=== PATIENT | female | born 1955 | race Asian ===

== ENCOUNTER 2019-06-26 23:00 | Emergency (ER) | payer MEDICARE, MEDICAID ==
[~2019-06-26] VITALS: Ht 152.4 cm; Wt 57.0 kg
[~2019-06-26 23:00] MED LIST: ATENOLOL; FERR-86 PO; METF-436 PO
[2019-06-26] MEDS ORDERED: morphine 4 MG/ML inj SYRINge IM ONE (23:35)
[2019-06-26] MEDS ORDERED: HYDROcodone/acetaminophen 10/325mg tab PO ONE (23:35)
[2019-06-26] MEDS ORDERED: ondansetron 4mg rapidly disintigrating tab PO ONE (23:50)
[2019-06-27] MEDS ORDERED: HYDR-4383 PO (01:15)
[2019-06-27 01:29] VITALS: BP 117/62
== END 2019-06-27 01:29 | disposition home or self-care (01) ==
LOC: ER 23:00
DX: S39.012A Strain of muscle, fascia and tendon of lower back, initial encounter (principal); R42 Dizziness and giddiness; I10 Essential (primary) hypertension; E11.9 Type 2 diabetes mellitus without complications; Z79.899 Other long term (current) drug therapy; W18.39XA Other fall on same level, initial encounter; Y93.89 Activity, other specified; Y92.89 Other specified places as the place of occurrence of the external cause; Y99.8 Other external cause status
CPT/HCPCS: 72100; 82948; 96372; 99284; J2270

== ENCOUNTER 2020-03-17 19:26 | Emergency (ER) | payer MEDICARE, MEDICAID ==
[~2020-03-17] VITALS: Ht 149.9 cm; Wt 44.1 kg
[~2020-03-17 19:26] MED LIST changes: +HYDR-4383 PO
[2020-03-17 20:00] LABS: BASOPHILS # (AUTO) 0.1 X10'3 (0-0.2); BASOPHILS % (AUTO) 0.6 % (0-1); EOSINOPHILS # (AUTO) 0.2 X10'3 (0-0.9); EOSINOPHILS % (AUTO) 1.8 % (0-6); HEMATOCRIT 34.3 % (35.0-45.0); HEMOGLOBIN 10.7 g/dl (12.0-16.0); LYMPHOCYTES # (AUTO) 3.1 X10'3 (1.1-4.8); LYMPHOCYTES % (AUTO) 28.5 % (21-51); MEAN CORPUSCULAR HEMOGLOBIN 20.7 PG (27.0-31.0); MEAN CORPUSCULAR HGB CONC 31.1 g/dL (33.0-36.5); MEAN CORPUSCULAR VOLUME 66.6 FL (78-98); MEAN PLATELET VOLUME 7.9 FL (7.4-10.4); MONOCYTES # (AUTO) 0.5 X10'3 (0-0.9); MONOCYTES % (AUTO) 4.6 % (2-12); NEUTROPHILS # (AUTO) 6.9 X10'3 (1.8-7.7); NEUTROPHILS % (AUTO) 64.5 % (42-75); PLATELET COUNT 255 X10'3 (140-440); RED BLOOD COUNT 5.16 X10'6 (4.20-5.60); RED CELL DISTRIBUTION WIDTH 14.9 % (11.5-14.5); WHITE BLOOD COUNT 10.8 X10'3 (4.5-11.0)
[2020-03-17 20:14] LABS: ALANINE AMINOTRANSFERASE 16 U/L (12-78); ALBUMIN 4.2 G/DL (3.4-5.0); ALBUMIN/GLOBULIN RATIO 1.2 (1.1-1.5); ALKALINE PHOSPHATASE 61 IU/L (46-116); ANION GAP 9 (8-16); ASPARTATE AMINO TRANSFERASE 14 U/L (10-37); BILIRUBIN,TOTAL 0.3 MG/DL (0.1-1.0); BLOOD UREA NITROGEN 9 MG/DL (7-18); BUN/CREATININE RATIO 8.2 (6.6-38.0); CALCIUM 9.2 MG/DL (8.5-10.1); CHLORIDE 97 MMOL/L (99-107); GLUCOSE 134 MG/DL (70-104); POTASSIUM 3.7 MMOL/L (3.5-5.1); SODIUM 135 MMOL/L (135-145); TOTAL CARBON DIOXIDE 28.7 MMOL/L (24-32); TOTAL PROTEIN 7.6 G/DL (6.4-8.2); eGFR 50 ML/MIN
[2020-03-17 23:16] VITALS: BP 162/74
== END 2020-03-17 23:17 | disposition home or self-care (01) ==
LOC: ER 19:26
DX: R00.2 Palpitations (principal); I10 Essential (primary) hypertension; E11.9 Type 2 diabetes mellitus without complications; Z79.899 Other long term (current) drug therapy
CPT/HCPCS: 36415; 71045; 80053; 83880; 84484; 85025; 93005; 99285

== ENCOUNTER 2020-03-20 17:51 | Inpatient (IN) | payer MEDICARE, MEDICAID ==
[~2020-03-20] VITALS: Ht 144.8 cm; Wt 45.6 kg
[2020-03-20 18:41] LABS: BASOPHILS % (AUTO) 0.5 % (0-1); EOSINOPHILS # (AUTO) 0.1 X10'3 (0-0.9); EOSINOPHILS % (AUTO) 0.9 % (0-6); HEMATOCRIT 33.7 % (35.0-45.0); HEMOGLOBIN 10.6 g/dl (12.0-16.0); LYMPHOCYTES # (AUTO) 2.1 X10'3 (1.1-4.8); LYMPHOCYTES % (AUTO) 20.8 % (21-51); MEAN CORPUSCULAR HEMOGLOBIN 20.6 PG (27.0-31.0); MEAN CORPUSCULAR HGB CONC 31.5 g/dL (33.0-36.5); MEAN CORPUSCULAR VOLUME 65.5 FL (78-98); MEAN PLATELET VOLUME 7.6 FL (7.4-10.4); MONOCYTES # (AUTO) 0.5 X10'3 (0-0.9); MONOCYTES % (AUTO) 4.6 % (2-12); NEUTROPHILS # (AUTO) 7.3 X10'3 (1.8-7.7); NEUTROPHILS % (AUTO) 73.2 % (42-75); PLATELET COUNT 256 X10'3 (140-440); RED BLOOD COUNT 5.14 X10'6 (4.20-5.60)
[2020-03-20 18:53] LABS: ALANINE AMINOTRANSFERASE 17 U/L (12-78); ALBUMIN 4.3 G/DL (3.4-5.0); ALBUMIN/GLOBULIN RATIO 1.3 (1.1-1.5); ALKALINE PHOSPHATASE 57 IU/L (46-116); ANION GAP 9 (8-16); ASPARTATE AMINO TRANSFERASE 14 U/L (10-37); BILIRUBIN,TOTAL 0.3 MG/DL (0.1-1.0); BLOOD UREA NITROGEN 8 MG/DL (7-18); BUN/CREATININE RATIO 8.6 (6.6-38.0); CALCIUM 9.4 MG/DL (8.5-10.1); CHLORIDE 86 MMOL/L (99-107); CREATININE 0.93 MG/DL (0.40-0.90); GLUCOSE 162 MG/DL (70-104); POTASSIUM 3.4 MMOL/L (3.5-5.1); SODIUM 122 MMOL/L (135-145); TOTAL CARBON DIOXIDE 27.5 MMOL/L (24-32); TOTAL PROTEIN 7.5 G/DL (6.4-8.2); eGFR 61 ML/MIN
[2020-03-20] MEDS ORDERED: aspirin 325mg tablet PO ONE (19:05)
[2020-03-20] MEDS ORDERED: normal saline 1000ml 1,000 ML IV ONE (19:05)
[2020-03-20] MEDS ORDERED: normal saline 1000ml 1,000 ML IV SCH (19:27)
[2020-03-20] MEDS ORDERED: mag hydrox/Alum hydrox/simeth 30ml oral suspension PO PRN (19:30)
[2020-03-20] MEDS ORDERED: acetaminophen 325mg tablet PO PRN (19:30)
[2020-03-20] MEDS ORDERED: magnesium hydroxide 30ml (MOM) UD suspension PO PRN (19:30)
[2020-03-20] MEDS ORDERED: ondansetron/PF 4mg/2ml inj IV PRN (19:30)
[2020-03-20] MEDS ORDERED: NAPR-56 PO (19:34)
[2020-03-20] MEDS ORDERED: METF-438 PO (19:34)
[2020-03-20] MEDS ORDERED: SITA50TA PO (19:34)
[2020-03-20] MEDS ORDERED: LOSA100T57 PO (19:34)
[2020-03-20] MEDS ORDERED: AMLO10TA PO (19:34)
[2020-03-20] MEDS ORDERED: GABA300C PO (19:34)
[2020-03-20] MEDS ORDERED: aminophylline 250mg/10ml inj. IV PRN (19:40)
[2020-03-20] MEDS ORDERED: regadenoson 0.4mg/5ml syringe IV PRN (19:40)
[2020-03-20] MEDS ORDERED: metoprolol tartrate 1mg/ml inj IV PRN (19:40)
[2020-03-20] MEDS ORDERED: nitroGLYCERIN 0.4mg SUBLingual tab SL PRN (19:40)
[2020-03-20] MEDS ORDERED: dextrose 50%-water 50ml dispensing syringe IV PRN ×2 (19:40)
[2020-03-20] MEDS ORDERED: dextrose ORAL solution 15 GM/59 ML bottle PO PRN ×2 (19:40)
[2020-03-20] MEDS ORDERED: MESSAGE TO PHARMACY PO ONE (19:40)
[2020-03-20] MEDS ORDERED: glucagon, human recombinant 1mg kit SUBCUT PRN (19:40)
[2020-03-20] MEDS ORDERED: insulin Lispro (HumaLOG) vial - multi-dose SQ SCH (19:40)
[2020-03-20] MEDS ORDERED: magnesium Cl slow-release 64mg tablet PO PRN (19:45)
[2020-03-20] MEDS ORDERED: potassium Cl 20 mEq SR tablet PO PRN ×2 (19:45)
[2020-03-20] MEDS ORDERED: magnesium 4gm in 100ml NS 100 ML IV PRN (19:45)
[2020-03-20] MEDS ORDERED: K and/or MAG REPLACEMENT MC SCH (20:00)
[2020-03-20] MEDS ORDERED: heparin, porcine 5000 units/ml vial SQ SCH (20:00)
[2020-03-20 20:30] VITALS: BP 147/68
[2020-03-20] MEDS ORDERED: insulin glargine (Lantus) pen - multi-dose SQ SCH (21:00)
[2020-03-20] MEDS ORDERED: gabapentin 300mg capsule PO SCH (21:00)
--- NOTE | 2020-03-20 21:25 | NUR ---
Call to Dr. Christensen, pt complaint of a headache and requesting tylenol, pt has tylenol ordered for fever above 101. Received order from Dr. Christensen may fgive tylenol for head ache.
[2020-03-20] MEDS: potassium CL 10mEq/100ml bag 100 ML IV PRN (21:34)
[2020-03-20 22:00] VITALS: BP 144/75
[2020-03-20 22:02] LABS: HEMOGLOBIN A1C 6.1 % (4.5-6.2)
[2020-03-20 22:05] LABS: CHOL/HDL RATIO 2.3 (0.00-4.99); CHOLESTEROL 185 MG/DL (0-200); HDL CHOLESTEROL 79 MG/DL (35-60); LDL CHOLESTEROL 90 MG/DL (50-100); TRIGLYCERIDES 99 MG/DL (20-135)
--- NOTE | 2020-03-20 23:07 | NUR ---
Unable to DART pt, pt speaks little [place], and would prefer to have family called in the morning
[2020-03-21] VITALS (16 sets, daily range): BP systolic 135–156; BP diastolic 68–81
[2020-03-21] MEDS: potassium CL 10mEq/100ml bag 100 ML IV PRN ×2 (00:01→01:46)
--- NOTE | 2020-03-21 02:15 | NUR ---
6hr troponin lab missed due to an urgent situation with another pt. Pt offered no complaint of symptoms.
[2020-03-21 04:59] LABS: HYPOCHROMASIA 1+
[2020-03-21 05:00] LABS: MICROCYTOSIS 2+
[2020-03-21 05:01] LABS: ELLIPTOCYTES 1+
[2020-03-21 05:02] LABS: PLATELET ESTIMATE NORMAL
[2020-03-21 05:57] LABS: ALANINE AMINOTRANSFERASE 24 U/L (12-78); ALBUMIN 3.9 G/DL (3.4-5.0); ALBUMIN/GLOBULIN RATIO 1.2 (1.1-1.5); ALKALINE PHOSPHATASE 53 IU/L (46-116); ANION GAP 8 (8-16); ASPARTATE AMINO TRANSFERASE 23 U/L (10-37); BILIRUBIN,TOTAL 0.3 MG/DL (0.1-1.0); BLOOD UREA NITROGEN 5 MG/DL (7-18); BUN/CREATININE RATIO 6.9 (6.6-38.0); CHLORIDE 96 MMOL/L (99-107); CREATININE 0.72 MG/DL (0.40-0.90); GLUCOSE 108 MG/DL (70-104); POTASSIUM 3.5 MMOL/L (3.5-5.1); SODIUM 133 MMOL/L (135-145); TOTAL CARBON DIOXIDE 29.3 MMOL/L (24-32); TOTAL PROTEIN 7.2 G/DL (6.4-8.2); eGFR 81 ML/MIN
--- NOTE | 2020-03-21 06:23 | NUR ---
Problems reprioritized. Patient report given, questions answered & plan of care reviewed with Renea GARCIA.
--- NOTE | 2020-03-21 06:30 | NUR ---
Patient in room PCU 3024. I have received report from Ronald GARCIA and had the opportunity to ask questions and assume patient care.
[2020-03-21 06:41] LABS: BASOPHILS # (AUTO) 0.1 X10'3 (0-0.2); BASOPHILS % (AUTO) 0.9 % (0-1); EOSINOPHILS # (AUTO) 0.1 X10'3 (0-0.9); EOSINOPHILS % (AUTO) 0.9 % (0-6); HEMATOCRIT 34.4 % (35.0-45.0); HEMOGLOBIN 10.9 g/dl (12.0-16.0); LYMPHOCYTES # (AUTO) 1.9 X10'3 (1.1-4.8); LYMPHOCYTES % (AUTO) 23.1 % (21-51); MEAN CORPUSCULAR HEMOGLOBIN 21.1 PG (27.0-31.0); MEAN CORPUSCULAR HGB CONC 31.7 g/dL (33.0-36.5); MEAN CORPUSCULAR VOLUME 66.4 FL (78-98); MEAN PLATELET VOLUME 8.6 FL (7.4-10.4); MONOCYTES # (AUTO) 0.5 X10'3 (0-0.9); MONOCYTES % (AUTO) 5.7 % (2-12); NEUTROPHILS # (AUTO) 5.6 X10'3 (1.8-7.7); NEUTROPHILS % (AUTO) 69.4 % (42-75); PLATELET COUNT 269 X10'3 (140-440); RED BLOOD COUNT 5.18 X10'6 (4.20-5.60); RED CELL DISTRIBUTION WIDTH 14.7 % (11.5-14.5); WHITE BLOOD COUNT 8.1 X10'3 (4.5-11.0)
[2020-03-21] MEDS ORDERED: ferrous sulfate 325mg tablet PO SCH (08:00)
[2020-03-21] MEDS ORDERED: losartan 50mg tablet PO SCH (08:00)
[2020-03-21] MEDS ORDERED: amLODIPine 5mg tablet PO SCH (08:00)
[2020-03-21] MEDS ORDERED: aspirin 325mg tablet PO SCH (08:30)
[2020-03-21 08:39] LABS: ANISOCYTOSIS 1+; MICROCYTOSIS 2+; PLATELET ESTIMATE NORMAL; SCHISTOCYTES FEW
[2020-03-21 08:40] LABS: ELLIPTOCYTES FEW; POLYCHROMASIA FEW; TARGET CELLS FEW
[2020-03-21] MEDS ORDERED: OMEP-50 PO (10:19)
[2020-03-21] MEDS ORDERED: FLUT16SP2 BOTHNARES (10:19)
--- NOTE | 2020-03-21 11:15 | NUR ---
Pt meds donelate due to Rissa scan. She refused Heparin but she is also ambulatory and independent. She dropped 1 Losartin and 1 Amlodipine so those were replaced from [facility].
--- NOTE | 2020-03-21 11:24 | NUR ---
DR. FRANKLIN PAGED: PAGER ID: [phone] MESSAGE: [id number]: RICHARD LAWTON (-) :D
--- NOTE | 2020-03-21 13:50 | NUR ---
Discharge orders given. Nurse and dr Ricci have spoken to family member to translate instructions, test results, discharge instruction and education for pt. IV d/lana no s/s of complications noted. VSS and no more chest pain. All belongings accounted for. Pt awaiting family to get to the hospital to take her home by private vehicle she is ambulatory and independent so she wants to walk and staff to escort.
== END 2020-03-21 13:55 | disposition home or self-care (01) | DRG 880 ==
LOC: ER 17:52 → ED HOLD 19:27 → PCU 3S 20:29
PROVIDERS: ADMIT Internal Medicine; ATTEND Family Medicine
PROC: 4A02XM4 Measurement of Cardiac Total Activity, External Approach (ICD-10-PCS; principal; 2020-03-21)
PROC: 3E073KZ Introduction of Other Diagnostic Substance into Coronary Artery, Percutaneous Approach (ICD-10-PCS; 2020-03-21)
DX: F41.9 Anxiety disorder, unspecified (principal); E87.1 Hypo-osmolality and hyponatremia; D50.9 Iron deficiency anemia, unspecified; E86.0 Dehydration; E11.9 Type 2 diabetes mellitus without complications; I10 Essential (primary) hypertension; Z79.899 Other long term (current) drug therapy
CPT/HCPCS: 36415; 71045; 78452; 80053; 80061; 82948; 83036; 84484; 85008; 85025; 87081; 93005; 93017; 99285; A9500; G0378; J0280; J1644; J1815; J2785; J3480; J7030

== ENCOUNTER 2020-05-27 14:43 | Emergency (ER) | payer MEDICARE, MEDICAID ==
[~2020-05-27] VITALS: Ht 142.2 cm; Wt 41.3 kg
[~2020-05-27 14:43] MED LIST changes: +AMLO10TA PO; -ATENOLOL; +FLUT16SP2 BOTHNARES; +GABA300C PO; -HYDR-4383 PO; +LOSA100T57 PO; -METF-436 PO; +METF-438 PO; +NAPR-56 PO; +OMEP-50 PO; +SITA50TA PO
[2020-05-27 17:02] LABS: BASOPHILS # (AUTO) 0.1 X10'3 (0-0.2); BASOPHILS % (AUTO) 0.6 % (0-1); EOSINOPHILS # (AUTO) 0.1 X10'3 (0-0.9); EOSINOPHILS % (AUTO) 0.7 % (0-6); HEMATOCRIT 29.9 % (35.0-45.0); HEMOGLOBIN 9.5 g/dl (12.0-16.0); LYMPHOCYTES # (AUTO) 2.3 X10'3 (1.1-4.8); LYMPHOCYTES % (AUTO) 18.6 % (21-51); MEAN CORPUSCULAR HEMOGLOBIN 21.2 PG (27.0-31.0); MEAN CORPUSCULAR HGB CONC 31.8 g/dL (33.0-36.5); MEAN CORPUSCULAR VOLUME 66.5 FL (78-98); MEAN PLATELET VOLUME 7.3 FL (7.4-10.4); MONOCYTES # (AUTO) 0.6 X10'3 (0-0.9); MONOCYTES % (AUTO) 5.1 % (2-12); NEUTROPHILS # (AUTO) 9.1 X10'3 (1.8-7.7); PLATELET COUNT 378 X10'3 (140-440); WHITE BLOOD COUNT 12.1 X10'3 (4.5-11.0)
[2020-05-27 17:10] LABS: ALANINE AMINOTRANSFERASE 28 U/L (12-78); ALBUMIN 3.6 G/DL (3.4-5.0); ALBUMIN/GLOBULIN RATIO 1.2 (1.1-1.5); ALKALINE PHOSPHATASE 59 IU/L (46-116); ANION GAP 6 (8-16); ASPARTATE AMINO TRANSFERASE 19 U/L (10-37); BILIRUBIN,TOTAL 0.3 MG/DL (0.1-1.0); BLOOD UREA NITROGEN 4 MG/DL (7-18); BUN/CREATININE RATIO 4.5 (6.6-38.0); CALCIUM 8.4 MG/DL (8.5-10.1); CHLORIDE 90 MMOL/L (99-107); CREATININE 0.89 MG/DL (0.40-0.90); GLUCOSE 183 MG/DL (70-104); SODIUM 126 MMOL/L (135-145); TOTAL CARBON DIOXIDE 30.2 MMOL/L (24-32); TOTAL PROTEIN 6.6 G/DL (6.4-8.2); eGFR 64 ML/MIN
[2020-05-27 17:13] LABS: POTASSIUM 2.6 MMOL/L (3.5-5.1)
--- NOTE | 2020-05-27 17:16 | NUR ---
Pt ambulatory to restroom to provide urine sample.
[2020-05-27] MEDS ORDERED: potassium chloride 10mEq ER tablet PO STA (17:19)
[2020-05-27 17:32] LABS: CLARITY,URINE CLEAR (Clear); COLOR,URINE STRAW (Yellow); GLUCOSE, URINE NEGATIVE (Neg); KETONES,URINE NEGATIVE (Neg); LEUKOCYTE ESTERASE ,URINE NEGATIVE (Neg); NITRITES, URINE NEGATIVE (Neg); OCCULT BLOOD,URINE NEGATIVE (Neg); PROTEIN,URINE NEGATIVE (Neg); UROBILINOGEN,URINE 0.2 E.U/dL (0.2-1.0)
[2020-05-27] MEDS ORDERED: normal saline 1000ml 1,000 ML IV SCH (17:35)
[2020-05-27 17:45] LABS: UA COLLECTION TYPE CLN CATCH MIDSTREAM
--- NOTE | 2020-05-27 17:50 | NUR ---
DR. John at bedside to discuss plan of care with patient.
[2020-05-27 18:34] LABS: ANISOCYTOSIS 1+; ELLIPTOCYTES FEW; MICROCYTOSIS 2+; PLATELET ESTIMATE NORMAL; POLYCHROMASIA FEW; TARGET CELLS FEW
[2020-05-27 19:28] VITALS: BP 130/57
== END 2020-05-27 19:32 | disposition home or self-care (01) ==
LOC: ER 14:44
DX: R53.1 Weakness (principal); E87.6 Hypokalemia; E86.0 Dehydration; R51.9 Headache, unspecified; R07.89 Other chest pain; I10 Essential (primary) hypertension; E11.9 Type 2 diabetes mellitus without complications; Z79.899 Other long term (current) drug therapy
CPT/HCPCS: 36415; 71045; 80053; 81003; 84484; 85025; 93005; 96360; 99285; J7030; 85008

== ENCOUNTER 2022-09-17 16:08 | Emergency (ER) | payer MEDICARE, MEDICAID ==
[~2022-09-17] VITALS: Ht 137.2 cm; Wt 43.5 kg
[~2022-09-17 16:08] MED LIST changes: -OMEP-50 PO; +OMEP20CA16 PO
[2022-09-17 16:14] VITALS: BP 133/56
== END 2022-09-17 18:48 | disposition left against medical advice (07) ==
LOC: ER 16:10
DX: R50.9 Fever, unspecified (principal); Z53.21 Procedure and treatment not carried out due to patient leaving prior to being seen by health care provider
CPT/HCPCS: 99281